=== PATIENT | female | born 1985 ===

== ENCOUNTER 2017-02-05 22:41 | Emergency (ER) | payer OTHER ==
[~2017-02-05] VITALS: Ht 157.5 cm; Wt 68.0 kg
[2017-02-05 23:03] VITALS: BP 143/95; PULSE 118; RESP 20; O2SAT 99
--- NOTE | 2017-02-05 23:33 | ED.REPORT ---
HPI-General Illness Date of Service February 05, 2017 ED Provider: Boaz Wright MD Patient is a 30 year old female who presents to the ED complaining of anxiety s/ p having food with THC in it at 2000 this evening. This was her first experience with THC since she was a teenager. She denies chest pain, shortness of breath, for any other symptoms. Nursing Notes Stated Complaint: SHAKY Chief Complaint: General Complaint Nursing Notes Reviewed: Yes Allergies: Coded Allergies: No Known Allergies (Unverified Allergy, Unknown, 02/05/17) General Time Seen by MD: 23:31 Chief Complaint Other (Anxiety ) Hx Obtained From: Patient Arrived By: Walk-in Sudden in Onset?: Yes Onset Occurred: 1 - 4 hours ago Symptom Duration: Since onset Similar Sx Previous: No Past Medical History Past Medical History Chronic shoulder pain Anxiety Past Surgical History Shoulder surgery Social History Drug Use: THC Ambulatory Status Independent Review of Systems Full Review of Systems Respiratory: Denies: Shortness of breath Cardiovascular: Denies: Chest pain Psychiatric: Reports: Anxiety Complete sys rev & neg: except as marked. Physical Exam Vital Signs Vital Signs Date Time Temp Pulse Resp B/P Pulse Ox O2 Delivery O2 Flow Rate FiO2 02/05/17 23:03 36.5 118 20 143/95 99 Initial VS: Reviewed Head / Eyes: Atraumatic, Normocephalic Neck: Supple, Full range of motion Respiratory: Breath sounds normal, Clear to auscultation, No respiratory distress Abdomen / GI: Soft, Non-tender, No distention Skin: Warm, Dry Neurologic: Alert, Oriented, Nonfocal Psychiatric: Mood/affect normal, Behavior normal, Normal thought content General/Constitutional: Awake, Alert, Well developed Behavior: Positive: Anxious Cardiovascular: Heart sounds NL, No gallop, No murmurs, No rubs Heart Rate / Rhythm: Positive: Tachycardia Re-Eval/Medical Decision Med Decision/Clinical Course The patient is a generally healthy 31-year-old female who presents to the emergency department with panic/anxiety after eating marijuana gummy bears. She states that she has never consumed or smoked marijuana in the past and ate the THC candy taking that it would help her with her anxiety. It had the opposite effect and now she is very anxious. She is not sure how many milligrams of THC were in the repairs that she ate but states that she only had one surveying. Here in the emergency room she is slightly anxious and tachycardic and accompanied by her boyfriend. I suspect that her tachycardia is an effect of the THC that she is consumed if she is afebrile, hemodynamically stable and nontoxic in appearance. She states that she is already feeling better and more calm and her ingestion was about 3-1/2 hours ago. I given her 1 mg of oral Ativan with good effect. I feel that she is appropriate for discharge home. She is accompanied by her boyfriend who will help take care of her. She has had no other ingestions, she has no SI and she is linear/organized. Prior to discharge follow-up and return precautions were reviewed in detail with the patient who verbalized understanding and agreement with the plan. The patient was discharged in stable condition. Time of Eval: 23:36 Re-Evaluation/Progress Note: Discussed plan for discharge. Patient understands and agrees with plan. All questions addressed at this time. Counseled Regarding: Diagnosis, Need for follow-up, When/why to return to ED Discharge & Departure Primary Impression: Mild tetrahydrocannabinol (THC) abuse Additional Impressions: Anxiety Tachycardia Disposition: Home Discharge Condition All VS Reviewed: Yes Condition: Stable Additional Instructions: Thank you for seeking care at the emergency room. It is difficult for us to make definitive diagnoses in the ED but we believe that you are experiencing anxiety. Our primary goal today in the ED was to evaluate you for any life-threatening conditions. Your evaluation was reassuring. You should return to the ED immediately if you develop anxiety, chest pain, shortness of breath, racing heart, or any other concerning signs or symptoms. Thank you for letting us partake in your care today. Referrals: Augustina Lara CNM (PCP) Scribe Attestation Portions of this note were transcribed by Camila Dugagn. I, Dr. Wright personally performed the history, physical exam and medical decision-making; I reviewed and confirmed the accuracy of the information in the transcribed note. Signed by: Camila Duggan 02/05/2017, 1834 copies to: Augustina Lara CNM [place], Beck O MD February 05, 2017 23:33 CAMILA DUGGAN February 05, 2017 23:41
[2017-02-05] MEDS ORDERED: LORazepam 1 mg Tablet PO ONE (23:40)
[2017-02-06 00:35] VITALS: BP 124/82; PULSE 99; RESP 20; O2SAT 98
[2017-02-06 00:49] VITALS: BP 124/82; PULSE 99; RESP 20; O2SAT 98
== END 2017-02-06 00:50 | disposition home or self-care (01) ==
LOC: SED 22:41
DX: F12.229 Cannabis dependence with intoxication, unspecified (principal); R00.0 Tachycardia, unspecified; F41.9 Anxiety disorder, unspecified